=== PATIENT | female | born 1990 | race Caucasian/White ===

== ENCOUNTER 2021-04-12 18:14 | Day surgery (SDC) | payer OTHER ==
[2021-04-12 19:05] VITALS: BMI 37.4
[2021-04-12] MEDS ORDERED: hydrALAZINE 20 MG/ML VIAL SLOW IVP PRN (19:27)
[2021-04-12] MEDS ORDERED: Lactated Ringer's 1,000 ML IV SCH (19:30)
[2021-04-12 21:17] LABS: Bilirubin Neg (Negative); Blood, Urine Negative (Negative); Clarity Clear (Clear); Glucose, Urine (Dipstick) Normal (Negative); Ketone, Urine 5 mg/dL (Negative); Leukocyte 25 (Negative); Nitrite Negative (Negative); Protein, Urine (Dipstick) Negative (Neg-Trace); Specific Gravity, Urine 1.015 (1.002-1.036); Urobilinogen Normal mg/dL (Less than 2)
[2021-04-12 21:18] LABS: Urine Culture Reflex No No
[2021-04-12 21:31] LABS: RBC/HPF 0-3 HPF (0-3)
[2021-04-12 21:38] LABS: Bacteria/HPF Rare-Few HPF (None Seen); Transitional Epithelial 0-3 HPF (None Seen)
== END 2021-04-12 21:33 | disposition home or self-care (01) ==
LOC: CSHLD/OP 18:14
PROVIDERS: ATTEND Obstetrics & Gynecology
DX: O36.8130 Decreased fetal movements, third trimester, not applicable or unspecified (principal); O47.03 False labor before 37 completed weeks of gestation, third trimester; Z3A.28 28 weeks gestation of pregnancy; Z79.82 Long term (current) use of aspirin
CPT/HCPCS: 81001

== ENCOUNTER 2021-05-31 23:39 | Day surgery (SDC) | payer OTHER ==
[2021-06-01 01:13] VITALS: BMI 40.6
[2021-06-01] MEDS ORDERED: hydrALAZINE 20 MG/ML VIAL SLOW IVP PRN (01:46)
== END 2021-06-01 02:10 | disposition home or self-care (01) ==
LOC: CSHLD/OP 23:39
PROVIDERS: ATTEND Obstetrics & Gynecology
DX: O47.03 False labor before 37 completed weeks of gestation, third trimester (principal); Z3A.36 36 weeks gestation of pregnancy
CPT/HCPCS: 99282

== ENCOUNTER 2021-06-20 10:38 | Inpatient (IN) | payer OTHER ==
[~2021-06-20 10:38] MED LIST: Bupivacaine 0.25% HCL 30 ML VIAL ONE
[2021-06-20] MEDS ORDERED: Ondansetron PF 4 MG/2 ML Vial IVP PRN ×2 (11:22→16:14)
[2021-06-20] MEDS ORDERED: Ibuprofen 800 MG TAB PO PRN (11:22)
[2021-06-20] MEDS ORDERED: HYDROcodone/Acetaminophen 5/325 mg Tablet PO PRN (11:22)
[2021-06-20] MEDS ORDERED: Misoprostol 200 MCG TAB PR PRN (11:22)
[2021-06-20] MEDS ORDERED: Butorphanol Tartrate 1 MG/ML VIAL SLOW IVP PRN (11:22)
[2021-06-20] MEDS ORDERED: Docusate 100 MG CAP PO PRN (11:22)
[2021-06-20] MEDS ORDERED: Diphenoxylate HCl/Atropine Tablet PO PRN ×2 (11:22)
[2021-06-20] MEDS ORDERED: Lidocaine 1% (PF) 30 ML VIAL SC PRN (11:22)
[2021-06-20] MEDS ORDERED: Acetaminophen 500 MG TAB PO PRN (11:22)
[2021-06-20] MEDS ORDERED: Promethazine HCl 25 MG/ML VIAL IM PRN ×2 (11:22→16:14)
[2021-06-20] MEDS ORDERED: Carboprost 250 MCG/ML AMP IM PRN (11:22)
[2021-06-20] MEDS ORDERED: hydrALAZINE 20 MG/ML VIAL SLOW IVP PRN (11:22)
[2021-06-20] MEDS ORDERED: Lactated Ringer's 1,000 ML IV SCH (11:30)
[2021-06-20] MEDS ORDERED: NS w/ Oxytocin 30 units 500 ML IV SCH ×2 (11:30)
[2021-06-20 12:17] VITALS: BMI 41.5
[2021-06-20 12:22] LABS: Hemoglobin 11.5 g/dL (12.0-15.5); Mean Corpuscular HGB CONC 32.7 g/dL (32.0-36.0); Mean Corpuscular Hemoglobin 27.1 pg (27.0-33.0); Mean Platelet Volume 10.6 fl (7.4-10.4); Platelet Count 204 10x3/uL (150-450); RBC Distribution Width 13.9 % (11.5-14.5); Red Blood Cell (RBC) Count 4.24 10x6/uL (3.90-5.03); White Blood Cell (WBC) Count 9.7 10x3/uL (3.5-10.5)
[2021-06-20 12:48] LABS: Hep B Surf Ag Non-Reactive S/CO (NonReactive)
[2021-06-20 12:49] LABS: Syphilis Antibody Nonreactive (Nonreactive); Syphilis Antibody Index 0.03 S/CO (<1.00 Non-Reactive)
[2021-06-20 13:26] LABS: SARS-CoV-2 NAA Rapid Test Not Detected (NotDetected)
[2021-06-20 13:28] LABS: HIV (1/2) Antibody/Antigen Non-Reactive (NonReactive); HIV 1/2 INDEX 0.07 S/CO (<1.00)
[2021-06-20] MEDS ORDERED: Fentanyl 2 mcg/Bup 0.1% Cadd 100 ML ONE (14:52)
[2021-06-20] MEDS ORDERED: Acetaminophen 325 MG TAB PO PRN (16:14)
[2021-06-20] MEDS ORDERED: ePHEDrine Sulfate 50 MG/10 ML VIAL SLOW IVP PRN (16:14)
[2021-06-20] MEDS ORDERED: diphenhydrAMINE 50 MG/ML VIAL IVP PRN (16:14)
[2021-06-20] MEDS ORDERED: Hydrocerin (Eucerin) Cream 120 gm Jar TOP PRN (16:14)
[2021-06-20] MEDS ORDERED: Naloxone HCl 0.4 mg/ml Vial IVP PRN ×2 (16:14)
[2021-06-20] MEDS ORDERED: Lactated Ringer's 500 ML IV PRN (16:14)
[2021-06-20] MEDS ORDERED: Communication Order-Pharmacy FS SCH (16:15)
[2021-06-20] MEDS ORDERED: Fentanyl 2 mcg/Bupivacaine 0.1% Cassette 100 ML EPIDURAL SCH (16:15)
[2021-06-21] MEDS ORDERED: diphenhydrAMINE 25 MG CAP PO PRN (00:01)
[2021-06-21] MEDS ORDERED: Misoprostol 200 MCG TAB VAG PRN (00:01)
[2021-06-21] MEDS ORDERED: Bisacodyl 10 MG SUPP PR PRN (00:01)
[2021-06-21] MEDS ORDERED: Lanolin Ointment 7 GM TUBE TOP PRN (00:01)
[2021-06-21] MEDS ORDERED: Boostrix 0.5 ML (Tdap) VIAL IM ONE (00:01)
[2021-06-21] MEDS ORDERED: NS w/ Oxytocin 30 units 500 ML IV SCH (00:01)
[2021-06-21] MEDS ORDERED: HYDROcodone/Acetaminophen 5/325 mg Tablet PO PRN (00:01)
[2021-06-21] MEDS ORDERED: Preparation H Ointment 28 GM TUBE PR PRN (00:01)
[2021-06-21] MEDS ORDERED: Promethazine HCl 25 MG/ML VIAL IM PRN (00:01)
[2021-06-21] MEDS ORDERED: hydrALAZINE 20 MG/ML VIAL SLOW IVP PRN (00:01)
[2021-06-21] MEDS ORDERED: Methylergonovine 0.2 MG/ML VIAL IM PRN (00:01)
[2021-06-21] MEDS ORDERED: Zolpidem Tartrate 5 MG TAB PO PRN (00:01)
[2021-06-21] MEDS ORDERED: Measles/Mumps/Rubella 10 MCG/0.5 ML VIAL SC ONE (00:01)
[2021-06-21] MEDS ORDERED: Milk Of Magnesia 30 ML UDCUP PO PRN (00:01)
[2021-06-21] MEDS ORDERED: Varicella virus, LIVE 0.5 ML VIAL SC ONE (00:01)
[2021-06-21] MEDS ORDERED: Ondansetron PF 4 MG/2 ML Vial IVP PRN (00:01)
[2021-06-21] MEDS ORDERED: Benzocaine-Menthol 82.5 ML CAN TOP PRN (00:01)
[2021-06-21] MEDS: Ibuprofen 800 MG TAB PO SCH ×4 (00:37→17:40)
[2021-06-21] MEDS: Docusate 100 MG CAP PO SCH ×3 (03:00→21:27)
[2021-06-21 04:14] LABS: Hemoglobin 11.2 g/dL (12.0-15.5); Mean Corpuscular HGB CONC 32.7 g/dL (32.0-36.0); Mean Corpuscular Hemoglobin 27.4 pg (27.0-33.0); Mean Corpuscular Volume 83.6 fl (81.6-98.3); Mean Platelet Volume 10.6 fl (7.4-10.4); Platelet Count 183 10x3/uL (150-450); RBC Distribution Width 13.8 % (11.5-14.5); Red Blood Cell (RBC) Count 4.09 10x6/uL (3.90-5.03); White Blood Cell (WBC) Count 12.3 10x3/uL (3.5-10.5)
[2021-06-21] MEDS: Ferrous Sulfate 325 MG TAB PO SCH ×2 (08:15→18:08)
[2021-06-21] MEDS: Prenatal Vitamin 1 TAB PO SCH (08:46)
[2021-06-22] MEDS: Ibuprofen 800 MG TAB PO SCH ×2 (00:07→08:06)
[2021-06-22 08:00] VITALS: BP 101/60; TEMP 98.3
[2021-06-22] MEDS: Ferrous Sulfate 325 MG TAB PO SCH (08:06)
[2021-06-22] MEDS: Docusate 100 MG CAP PO SCH (08:08)
[2021-06-22] MEDS: Prenatal Vitamin 1 TAB PO SCH (08:08)
== END 2021-06-22 09:30 | disposition home or self-care (01) | DRG 807 ==
LOC: CSHLD 10:38 → CSHPP 23:36
PROVIDERS: ADMIT Obstetrics & Gynecology; ATTEND Obstetrics & Gynecology
PROC: 10E0XZZ Delivery of Products of Conception, External Approach (ICD-10-PCS; principal; 2021-06-20)
PROC: 0HQ9XZZ Repair Perineum Skin, External Approach (ICD-10-PCS; 2021-06-20)
PROC: 10907ZC Drainage of Amniotic Fluid, Therapeutic from Products of Conception, Via Natural or Artificial Opening (ICD-10-PCS; 2021-06-20)
DX: O41.03X0 Oligohydramnios, third trimester, not applicable or unspecified (principal); Z37.0 Single live birth; Z3A.38 38 weeks gestation of pregnancy; O70.0 First degree perineal laceration during delivery
CPT/HCPCS: 36415; 51702; 85027; 86780; 86850; 86900; 86901; 87340; 87389; J2590; S0020; U0002

== ENCOUNTER 2022-03-14 18:28 | Inpatient (IN) | payer OTHER ==
[2022-03-14 19:41] LABS: #Eosinphils 0.1 10x3/uL (0.0-0.5); #Monocytes 0.4 10x3/uL (0.0-1.1); #Neutrophils 4.7 10x3/uL (1.5-8.4); %Basophils 0.6 % (0.0-2.0); %Eosinophils 1.3 % (0.0-6.0); %Lymphocytes 23.2 % (18.0-47.0); %Monocytes 5.3 % (0.0-10.0); %Neutrophils 69.3 % (40.0-75.0); Hemoglobin 13.4 g/dL (12.0-15.5); Mean Corpuscular HGB CONC 32.6 g/dL (32.0-36.0); Mean Corpuscular Hemoglobin 27.4 pg (27.0-33.0); Mean Platelet Volume 9.3 fl (7.4-10.4); Platelet Count 262 10x3/uL (150-450); RBC Distribution Width 12.4 % (11.5-14.5); Red Blood Cell (RBC) Count 4.89 10x6/uL (3.90-5.03); White Blood Cell (WBC) Count 6.8 10x3/uL (3.5-10.5)
[2022-03-14 20:02] LABS: ALT (SGPT) 431 U/L (8-55); AST (SGOT) 201 U/L (5-34); Albumin 4.5 g/dL (3.5-5.0); Alkaline Phosphatase 179 U/L (40-110); Anion Gap 15 mmol/L (10-20); BUN (Urea Nitrogen) 9 mg/dL (7.0-18.7); Bilirubin, Total 3.9 mg/dL (0.2-1.2); Calc. Creatinine Clearance 0 mL/min (70-130); Calcium 9.5 mg/dL (7.8-10.44); Carbon Dioxide 26 mmol/L (22-29); Chloride 105 mmol/L (98-107); Estimated GFR 92; Glucose 120 mg/dL (70-105); Lipase 43 U/L (8-78); Potassium 3.9 mmol/L (3.5-5.1); Protein, Total 7.5 g/dL (6.0-8.3); Sodium 142 mmol/L (136-145)
[2022-03-14] MEDS ORDERED: Piperacillin/Tazobactam 3.375 GM VIAL ONE (20:48)
[2022-03-14 20:53] LABS: Bilirubin 6 (Negative); Blood, Urine 10 (Negative); Clarity Sl. Cloudy (Clear); Glucose, Urine (Dipstick) Normal (Negative); Ketone, Urine 5 mg/dL (Negative); Leukocyte 25 (Negative); Protein, Urine (Dipstick) 30 mg/dl (Neg-Trace)
[2022-03-14 21:01] LABS: Nitrite Negative (Negative)
[2022-03-14 21:03] LABS: Bacteria/HPF None Seen HPF (None Seen); Mucous/LPF 3+ LPF (<2+); RBC/HPF 0-3 HPF (0-3); Squamous Epithelial 0-3 HPF (0-3); WBC/HPF 0-3 HPF (0-3)
[2022-03-14 21:04] LABS: Pregnancy Test - Urine (BHCG) Negative (Negative); Pregu Control Background? CLEAR/WHITE (CLR/WHITE); Pregu Control Bar Appear? YES (CONTROL BAR)
[2022-03-14] MEDS ORDERED: Senokot S 8.6-50 MG TAB PO PRN (21:18)
[2022-03-14] MEDS ORDERED: Guaifenesin DM 100-10/5 ML UDCUP PO PRN (21:18)
[2022-03-14] MEDS ORDERED: Calcium Carbonate 500 MG ChewTAB PO PRN (21:18)
[2022-03-14] MEDS ORDERED: Zolpidem Tartrate 5 MG TAB PO PRN (21:18)
[2022-03-14 22:29] VITALS: BMI 33.5
[2022-03-14] MEDS: Lactated Ringer's 1,000 ML IV SCH (22:36)
[2022-03-15 00:28] LABS: SARS-CoV-2 NAA Rapid Test Not Detected (NotDetected)
[2022-03-15 04:54] LABS: #Basophils 0.1 10x3/uL (0.0-0.2); #Eosinphils 0.1 10x3/uL (0.0-0.5); #Monocytes 0.5 10x3/uL (0.0-1.1); #Neutrophils 2.9 10x3/uL (1.5-8.4); %Basophils 0.8 % (0.0-2.0); %Eosinophils 2.3 % (0.0-6.0); %Lymphocytes 42.6 % (18.0-47.0); %Monocytes 7.6 % (0.0-10.0); %Neutrophils 46.4 % (40.0-75.0); Mean Corpuscular HGB CONC 32.3 g/dL (32.0-36.0); Mean Corpuscular Hemoglobin 27.2 pg (27.0-33.0); Mean Corpuscular Volume 84.1 fl (81.6-98.3); Mean Platelet Volume 9.5 fl (7.4-10.4); Platelet Count 249 10x3/uL (150-450); RBC Distribution Width 12.3 % (11.5-14.5); Red Blood Cell (RBC) Count 4.41 10x6/uL (3.90-5.03); White Blood Cell (WBC) Count 6.2 10x3/uL (3.5-10.5)
[2022-03-15 05:08] LABS: ALT (SGPT) 301 U/L (8-55); AST (SGOT) 118 U/L (5-34); Albumin 3.6 g/dL (3.5-5.0); Alkaline Phosphatase 150 U/L (40-110); Anion Gap 12 mmol/L (10-20); BUN (Urea Nitrogen) 6 mg/dL (7.0-18.7); Bilirubin, Total 3.1 mg/dL (0.2-1.2); Calc. Creatinine Clearance 185 mL/min (70-130); Calcium 8.5 mg/dL (7.8-10.44); Carbon Dioxide 25 mmol/L (22-29); Chloride 109 mmol/L (98-107); Estimated GFR 108; Globulin 2.4 g/dL (2.4-3.5); Glucose 104 mg/dL (70-105); Potassium 4.1 mmol/L (3.5-5.1); Sodium 142 mmol/L (136-145)
[2022-03-15] MEDS: Lactated Ringer's 1,000 ML IV SCH ×3 (08:07→23:06)
[2022-03-15] MEDS: Enoxaparin Sodium 40 MG/0.4 ML SYRINGE SC SCH (08:07)
[2022-03-15] MEDS: Famotidine/PF 20 mg/2ml Vial SLOW IVP SCH ×2 (08:07→21:04)
[2022-03-15] MEDS: Ketorolac Tromethamine 30 MG/ML VIAL IVP SCH (12:53)
[2022-03-15] MEDS ORDERED: Ondansetron PF 4 MG/2 ML Vial ONE (13:28)
[2022-03-15] MEDS ORDERED: HYDROmorphone 0.5 MG/0.5 ML SYRINGE ONE (13:28)
[2022-03-15] MEDS ORDERED: Dexamethasone 4 mg/ml Vial ONE (13:28)
[2022-03-15] MEDS ORDERED: PROPOFOL 20 ML ONE (13:28)
[2022-03-15] MEDS ORDERED: Rocuronium Bromide 10 MG/ML (10ML VIAL) ONE (13:28)
[2022-03-15] MEDS ORDERED: Midazolam HCl 2 mg/2 ml Vial ONE (13:28)
[2022-03-15] MEDS ORDERED: Lidocaine 1% PF 5 ML VIAL ONE (13:29)
[2022-03-15] MEDS ORDERED: EPINEPHrine 1 MG/ML AMP ONE (13:30)
[2022-03-15] MEDS ORDERED: Bupivacaine 0.25% HCL 30 ML VIAL ONE (13:30)
[2022-03-15] MEDS ORDERED: Iopamidol 30 ML ONE (13:31)
[2022-03-15] MEDS ORDERED: metroNIDAZOLE 500 MG/100 ML BAG ONE (13:48)
[2022-03-15] MEDS ORDERED: Esmolol 100 MG/10 ML VIAL ONE (13:52)
[2022-03-15] MEDS ORDERED: Ketorolac Tromethamine 30 MG/ML VIAL ONE (14:17)
[2022-03-15] MEDS ORDERED: SUGAMMADEX SODIUM 200 MG/2 ML VIAL ONE (14:37)
[2022-03-15] MEDS ORDERED: Fentanyl 100 MCG/2 ML VIAL ONE ×2 (15:28→15:48)
[2022-03-15] MEDS: Morphine 2 MG/ML VIAL SLOW IVP PRN (16:50)
[2022-03-15] MEDS: metroNIDAZOLE 500 MG in Premix Bag 1 BAG IVPB SCH ×2 (16:50→21:04)
[2022-03-15] MEDS: Morphine 4 MG/ML VIAL SLOW IVP PRN ×2 (19:13→23:05)
[2022-03-15] MEDS: Ondansetron PF 4 MG/2 ML Vial IVP PRN (19:29)
[2022-03-16] MEDS: Morphine 4 MG/ML VIAL SLOW IVP PRN ×2 (02:50→07:18)
[2022-03-16 05:05] LABS: ALT (SGPT) 235 U/L (8-55); AST (SGOT) 79 U/L (5-34); Albumin 3.6 g/dL (3.5-5.0); Alkaline Phosphatase 141 U/L (40-110); Anion Gap 13 mmol/L (10-20); BUN (Urea Nitrogen) 5 mg/dL (7.0-18.7); Bilirubin, Total 3.1 mg/dL (0.2-1.2); Calc. Creatinine Clearance 196 mL/min (70-130); Calcium 8.5 mg/dL (7.8-10.44); Carbon Dioxide 25 mmol/L (22-29); Chloride 105 mmol/L (98-107); Estimated GFR 116; Globulin 2.5 g/dL (2.4-3.5); Glucose 109 mg/dL (70-105); Potassium 4.2 mmol/L (3.5-5.1); Protein, Total 6.1 g/dL (6.0-8.3); Sodium 139 mmol/L (136-145)
[2022-03-16] MEDS: metroNIDAZOLE 500 MG in Premix Bag 1 BAG IVPB SCH ×2 (06:05→13:40)
[2022-03-16] MEDS: Enoxaparin Sodium 40 MG/0.4 ML SYRINGE SC SCH (08:19)
[2022-03-16] MEDS: Lactated Ringer's 1,000 ML IV SCH ×2 (09:06→13:41)
[2022-03-16] MEDS: Famotidine/PF 20 mg/2ml Vial SLOW IVP SCH ×2 (09:06→21:20)
[2022-03-16] MEDS: Ondansetron PF 4 MG/2 ML Vial IVP PRN ×2 (09:12→14:12)
[2022-03-16] MEDS ORDERED: Rocuronium Bromide 10 MG/ML (10ML VIAL) ONE (11:52)
[2022-03-16] MEDS ORDERED: Fentanyl 100 MCG/2 ML VIAL ONE (11:52)
[2022-03-16] MEDS ORDERED: PROPOFOL 20 ML ONE (11:52)
[2022-03-16] MEDS ORDERED: Iopamidol 30 ML ONE (11:57)
[2022-03-16] MEDS ORDERED: Ethanolamine Oleate 5% 2 ml Ampule ONE (11:57)
[2022-03-16] MEDS ORDERED: Ondansetron PF 4 MG/2 ML Vial ONE (11:58)
[2022-03-16] MEDS ORDERED: Lidocaine 1% PF 5 ML VIAL ONE (11:58)
[2022-03-16] MEDS ORDERED: Indomethacin 50 MG SUPP ONE (11:58)
[2022-03-16] MEDS ORDERED: Dexamethasone 4 mg/ml Vial ONE (12:43)
[2022-03-16] MEDS: Ketorolac Tromethamine 30 MG/ML VIAL IVP SCH (12:43)
[2022-03-17 04:35] LABS: ALT (SGPT) 187 U/L (8-55); AST (SGOT) 56 U/L (5-34); Albumin 3.6 g/dL (3.5-5.0); Alkaline Phosphatase 132 U/L (40-110); Anion Gap 13 mmol/L (10-20); BUN (Urea Nitrogen) 6 mg/dL (7.0-18.7); Bilirubin, Total 1.9 mg/dL (0.2-1.2); Calc. Creatinine Clearance 188 mL/min (70-130); Calcium 8.6 mg/dL (7.8-10.44); Carbon Dioxide 24 mmol/L (22-29); Chloride 107 mmol/L (98-107); Estimated GFR 110; Globulin 2.4 g/dL (2.4-3.5); Glucose 105 mg/dL (70-105); Lipase 89 U/L (8-78); Potassium 3.7 mmol/L (3.5-5.1); Sodium 140 mmol/L (136-145)
[2022-03-17] MEDS ORDERED: Acetaminophen 325 MG TAB PO PRN (04:55)
[2022-03-17] MEDS: Ondansetron PF 4 MG/2 ML Vial IVP PRN (05:31)
[2022-03-17 08:29] VITALS: BP 116/64; TEMP 97.4
[2022-03-17] MEDS: Enoxaparin Sodium 40 MG/0.4 ML SYRINGE SC SCH (08:44)
[2022-03-17] MEDS: Morphine 2 MG/ML VIAL SLOW IVP PRN (08:45)
[2022-03-17] MEDS: Famotidine/PF 20 mg/2ml Vial SLOW IVP SCH (08:46)
== END 2022-03-17 11:05 | disposition home or self-care (01) | DRG 419 ==
LOC: CSHERS 18:28 → CSHTELE 21:01
PROVIDERS: ADMIT Student in an Organized Health Care Education/Training Program; ATTEND Family Medicine
PROC: 0FT44ZZ Resection of Gallbladder, Percutaneous Endoscopic Approach (ICD-10-PCS; principal; 2022-03-15)
PROC: BF101ZZ Fluoroscopy of Bile Ducts using Low Osmolar Contrast (ICD-10-PCS; 2022-03-15)
PROC: 0FC98ZZ Extirpation of Matter from Common Bile Duct, Via Natural or Artificial Opening Endoscopic (ICD-10-PCS; 2022-03-16)
PROC: BF101ZZ Fluoroscopy of Bile Ducts using Low Osmolar Contrast (ICD-10-PCS; 2022-03-16)
DX: K80.42 Calculus of bile duct with acute cholecystitis without obstruction (principal); Z20.822 Contact with and (suspected) exposure to COVID-19; Z98.51 Tubal ligation status; Z79.82 Long term (current) use of aspirin; Z79.899 Other long term (current) drug therapy
CPT/HCPCS: 36415; 47532; 74181; 74330; 76705; 80053; 81003; 81015; 81025; 83690; 85025; 88304; C1725; C1889; J0171; J1100; J1170; J1430; J1610; J1650; J1885; J1956; J2250; J2270; J2405; J2543; J2704; J3010; J7120; Q9967; S0020; S0028; U0002